=== PATIENT | female | born 2000 | race African-American/Black ===

== ENCOUNTER 2020-06-28 12:55 | Emergency (ER) | payer SELFPAY ==
[2020-06-28] MEDS ORDERED: Ketorolac Tromethamine 30 MG/ML VIAL ONE (14:33)
== END 2020-06-28 14:53 | disposition home or self-care (01) ==
LOC: ERS 12:55
DX: S86.911A Strain of unspecified muscle(s) and tendon(s) at lower leg level, right leg, initial encounter (principal); X50.1XXA Overexertion from prolonged static or awkward postures, initial encounter
CPT/HCPCS: 96372; J1885